=== PATIENT | male | born 1980 ===

== ENCOUNTER 2023-12-24 06:28 | Emergency (ER) | payer OTHER ==
[2023-12-24] MEDS: HYDROmorphone 1 MG/ML Syringe SUBCUT ONE (06:55)
[2023-12-24] MEDS ORDERED: methylPREDNISolone Sodium Succinate 125 MG/2 ML SDV IVPUSH STA (07:08)
[2023-12-24] MEDS: methylPREDNISolone Sodium Succinate 125 MG/2 ML SDV IM STA (07:18)
== END 2023-12-24 07:40 | disposition home or self-care (01) ==
LOC: CC.ED 06:28
DX: M54.41 Lumbago with sciatica, right side (principal); Z79.899 Other long term (current) drug therapy
CPT/HCPCS: 96372; 99283; J1170; J2919

== ENCOUNTER 2023-12-25 19:00 | Emergency (ER) | payer OTHER ==
[2023-12-25] MEDS: HYDROmorphone 1 MG/ML Syringe SUBCUT ONE (19:21)
[2023-12-25] MEDS: Take Home: Acetaminophen/oxyCODONE 325-5 MG, 2 Tab Pack PO ONE (19:27)
== END 2023-12-25 19:45 | disposition home or self-care (01) ==
LOC: CC.ED 19:00
DX: M51.26 Other intervertebral disc displacement, lumbar region (principal); M54.41 Lumbago with sciatica, right side
CPT/HCPCS: 96372; 99283; 99284; A9270; J1170